=== PATIENT | male | born 1995 | race Caucasian/White ===

== ENCOUNTER 2020-06-02 14:31 | Emergency (ER) | payer MEDICAID, SELFPAY ==
--- NOTE | 2020-06-02 14:54 | HMH.EDUTC ---
[facility] [place] Clinical Impression: Sinusitis Qualifiers: Sinusitis location: unspecified location Chronicity: acute Recurrence: non-recurrent Qualified Code(s): J01.90 - Acute sinusitis, unspecified Disposition: Home, Self-Care Condition on Discharge: Good Instructions: Sinusitis, DI for Sinusitis Additional Instructions: Drink plenty of fluids. Take tylenol or ibuprofen for pain or fever. Take the medications as directed. Follow up with your regular doctor. GO TO THE ER FOR ANY WORSENING SYMPTOMS Prescriptions: Brompheniramine/Pseudoephed/Dm [Bromfed Dm Cough Syrup] 5 ml PO Q6HP PRN #240 syrup PRN Reason: Cough Transmission Status: Received by [facility] Azithromycin [Z-Rahul 250mg Tab*] 250 mg PO UD DOSE PK #6 tab Transmission Status: Received by [facility] Referrals: PCP,No [Primary Care Provider] - Forms: Work/School Release Time of Disposition: 15:20 Medical Decision Making - Medical Records Medical records reviewed: No: I reviewed the patient's medical records. - Johnnie Inquiry Pt receiving controlled substance: No Vital Signs: 06/02/20 14:56 06/02/20 15:26 Temperature 98.6 F 98.6 F Temperature Source Oral Pulse Rate 95 H Pulse Rate [Left Brachial] 95 H Respiratory Rate 20 20 Blood Pressure 141/77 H Blood Pressure [Right Arm] 141/77 H Blood Pressure Mean [Right Arm] 98 Blood Pressure Source [Right Arm] Automatic Cuff Blood Pressure Position [Right Arm] Sitting 02 Sat by Pulse Oximetry 98 Oxygen Delivery Method Room Air [facility] [place]PI - General Stated complaint: Possible sinus infection Time Seen by Provider: 06/02/20 14:54 - History of Present Illness Provider Complaint: He states that he has a sinus infection. He states that he gets one this time of year every year. He denies any exposure to covid. He refuses a covid test today. - Related Data Previous Rx's Medication Instructions Recorded Azithromycin [Z-Rahul 250mg Tab*] 250 mg PO UD DOSE PK #6 tab 06/02/20 Brompheniramine/Pseudoephed/Dm 5 ml PO Q6HP PRN #240 syrup 06/02/20 [Bromfed Dm Cough Syrup] Allergies Allergy/AdvReac Type Severity Reaction Status Date / Time No Known Allergies Allergy Verified 06/02/20 15:03 [facility] History - Hepatitis A Screen Attestation statement:: This patient has been screened for Hepatitis A risk factors. I have reviewed the patient's past medical history: Yes - Social History Alcohol Intake: never Occupational Status: employed Housing: house ROS Obtained: Yes All systems reviewed & no additional complaints - Constitutional Constitutional: Denies chills, Denies fever(s), Reports poor appetite, Reports malaise - Eyes Eyes: Denies eye discharge - ENT Ears, Nose, Mouth, and Throat: Reports as per HPI - Cardiovascular Cardiovascular: Denies chest pain - Respiratory Respiratory: No chest congestion, Yes cough, No dyspnea, No stridor, No wheezing Physical Exam - General General appearance: alert, in no apparent distress - Head Head exam: atraumatic, normocephalic, normal inspection - Eye Eye exam: Present: normal appearance, PERRL, EOMI - ENT ENT exam: Present: mucous membranes moist, normal external ear exam - Expanded ENT Exam TM/Canal exam: Bilateral TM: erythema, bulging Nose exam: Present: sinus tenderness Mouth exam: Present: normal external inspection Teeth exam: Present: normal inspection Throat exam: Present: tonsillar erythema. Absent: tonsillomegaly, tonsillar exudate, R peritonsillar mass, L peritonsillar mass - Neck Neck exam: Present: normal inspection, full ROM, trachea midline. Absent: meningismus, lymphadenopathy - Chest Chest inspection: Present: normal inspection, symmetric chest wall rise. Absent: tenderness - Respiratory Respiratory exam: Present: normal lung sounds bilaterally. Absent: respiratory distress - Cardiovascular Cardiovascular exam: Present: regular rate, normal rhythm
[2020-06-02 14:56] VITALS: BP 141/77; PULSE 95; RESP 20; TEMP 37; O2SAT 98; BMI 49.1
[2020-06-02 15:26] VITALS: BP 141/77; PULSE 95; RESP 20; TEMP 37; O2SAT 98
== END 2020-06-02 15:30 | disposition home or self-care (01) ==
LOC: UTC 14:34
PROVIDERS: Emergency Provider Nurse Practitioner Family
DX: J01.90 Acute sinusitis, unspecified (principal)
CPT/HCPCS: 99201

== ENCOUNTER 2021-01-19 01:37 | Emergency (ER) | payer OTHER, SELFPAY ==
[2021-01-19 02:02] VITALS: BMI 50.3
--- NOTE | 2021-01-19 02:04 | XR_ITS ---
PROCEDURE INFORMATION: Exam: XR Chest Exam date and time: 01/19/2021 2:04 AM Age: 25 years old Clinical indication: Patient HX: Fever dizzy TECHNIQUE: Imaging protocol: XR of the chest. Views: 2 views. Total images: 2 COMPARISON: No relevant prior studies available. FINDINGS: Lungs: Subtle bronchial inflammation is evident with mild hyperinflation. Pleural spaces: Unremarkable. No pleural effusion. No pneumothorax. Heart/Mediastinum: Unremarkable. No cardiomegaly. Bones/joints: Unremarkable. IMPRESSION: Hyperinflation and subtle bronchial wall thickening, bronchitis versus asthma. No consolidation.
[2021-01-19 02:14] VITALS: BP 142/94; PULSE 100; RESP 16; TEMP 38.1; O2SAT 97; BMI 50.3
[2021-01-19 02:17] LABS: Adenovirus,PCR Not Detected (NotDetected); Bordetella Pertussis Not Detected (NotDetected); Chlamydophila Pneumoniae, PCR Not Detected (NotDetected); Coronavirus 19, PCR Not Detected (NotDetected); Coronavirus 229E Not Detected (NotDetected); Coronavirus NL63 Not Detected (NotDetected); Coronavirus OC43 Not Detected (NotDetected); Coronovirus HKU1,PCR Not Detected (NotDetected); Human Metapneumovirus Not Detected (NotDetected); Influenza A, PCR Not Detected (NotDetected); Influenza AH1, 2009 Not Detected (NotDetected); Influenza AH1, PCR Not Detected (NotDetected); Influenza AH3,PCR Not Detected (NotDetected); Influenza B, PCR Not Detected (NotDetected); Mycoplasma Pneumoniae, PCR Not Detected (NotDetected); Parainfluenza 1, PCR Not Detected (NotDetected); Parainfluenza 2, PCR Not Detected (NotDetected); Parainfluenza 3, PCR Not Detected (NotDetected); Parainfluenza 4, PCR Not Detected (NotDetected); Respiratory Syncytial Virus Not Detected (NotDetected); Rhinovirus/Enterovirus Not Detected (NotDetected)
[2021-01-19 02:22] LABS: Basophils % 0.4 % (0.1-2.0); Eosinophils # 0.1 K/mm3 (0.0-0.4); Eosinophils % 1.3 % (0.1-12.0); Hematocrit 43.8 % (42.0-52.0); Hemoglobin 14.9 g/dL (14.1-18.0); Lymphocytes # 0.7 K/mm3 (0.7-4.5); Lymphocytes % 15.6 % (10-50); Mean Corpuscular HGB Conc 33.9 g/dL (31.8-35.4); Mean Corpuscular Hemoglobin 28.2 pg (27.0-31.2); Mean Corpuscular Volume 83.3 fl (80-94); Mean Platelet Volume 9.9 fl (7.4-10.4); Monocytes # 0.2 K/mm3 (0.1-1.0); Monocytes % 4.7 % (1.7-9.3); Neutrophils # 3.6 K/mm3 (1.8-7.8); Platelet Count 175 K/mm3 (142-424); Red Blood Count 5.26 M/mm3 (4.60-6.20); Red Cell Distribution Width 13.6 % (11.5-17.5); White Blood Count 4.6 K/mm3 (4.8-10.8)
[2021-01-19 02:30] LABS: Chloride 105 mmol/L (98-107); Potassium 3.9 mmoL/L (3.5-5.1); Sodium 140 mmol/L (136-145)
[2021-01-19 02:32] LABS: Blood Urea Nitrogen 13 mg/dl (9-20); Creatinine Clearance Estimated 138 mL/min (50-200); Estimated Glomerular Filt Rate 103 ml/min (>60); GFR (African American) 124 ML/MIN (>60)
[2021-01-19 02:33] LABS: Alanine Aminotransferase 72 U/L (12-78); Albumin Level 4.8 g/dl (3.5-5.0); Albumin/Globulin Ratio 2.3 (1.1-1.8); Alkaline Phosphatase 57 U/L (38-126); Anion Gap 13.9 mEq/L (5-15); Aspartate Amino Transferase 41 U/L (17-59); Bilirubin,Total 1.9 mg/dl (0.2-1.3); Calcium 9.2 mg/dl (8.4-10.2); Carbon Dioxide 25 mmol/L (22.0-30.0); Globulin 2.1 g/dL (1.3-3.2); Glucose 106 mg/dl (74-100); Total Protein,Serum 6.9 g/dl (6.3-8.2)
[2021-01-19 02:55] LABS: Monoscreen (Rapid) Negative (Negative)
[2021-01-19 03:00] LABS: Erythrocyte Sedimentation Rate 19 mm/hr (0-15)
[2021-01-19 03:20] VITALS: BP 120/72; PULSE 95; O2SAT 97
[2021-01-19 03:30] VITALS: BP 135/73; PULSE 95; O2SAT 97
--- NOTE | 2021-01-19 03:39 | HMH.EDFEV ---
ED Disposition Clinical Impression: Bronchitis Disposition: Home, Self-Care Condition on Discharge: Good Instructions: DI for Fever (Symptom) -- Adult Additional Instructions: use meds and fluids and see pcp for follow up Prescriptions: levoFLOXacin [Levaquin 500mg tab] 500 mg PO DAILY #7 tab Transmission Status: Pending to [facility] predniSONE [Prednisone 20mg Tab] 20 mg PO BID #10 tab Transmission Status: Pending to [facility] Referrals: Provider,Referral, [Primary Care Provider] - - Critical Care Critical Care Time: No Attestation: On 01/19/21, the high probability of a clinically significant, sudden or life threatening deterioration of the following system(s) required my full and direct attention, intervention and personal management. The time I documented below is in addition to time spent performing reported procedures but includes the following listed in this critical care notation. Medical Decision Making - Medical Records Medical records reviewed: Yes: I reviewed the patient's medical records. - Johnnie Inquiry Pt receiving controlled substance: No Vital Signs: 01/19/21 02:14 01/19/21 03:20 01/19/21 03:30 Temperature 100.6 F H Temperature Source Oral Pulse Rate 95 H 95 H Pulse Rate [Right] 100 H Respiratory Rate 16 Blood Pressure 120/72 135/73 Blood Pressure [Right Arm] 142/94 H Blood Pressure Mean 94 Blood Pressure Mean [Right Arm] 110 Blood Pressure Source [Right Arm] Automatic Cuff Blood Pressure Position [Right Arm] Supine 02 Sat by Pulse Oximetry 97 97 97 Oxygen Delivery Method Room Air - Lab Data Lab results reviewed: Yes: I reviewed the patient's lab results. Lab Results 01/19/21 02:08: Chlamy pneumoniae PCR Not detected, Adenovirus (PCR) Not detected, B. pertussis DNA (PCR) Not detected, Coronavirus OC43 (PCR) Not detected, Coronavirus HKU1 (PCR) Not detected, Coronavirus 229E (PCR) Not detected, SARS-CoV-2 (PCR) Not detected, Coronavirus NL63 (PCR) Not detected, Human Metapneumovir PCR Not detected, Influenza A (H1) PCR Not detected, Influ A (H1N1/09) PCR Not detected, Influenza A (H3) PCR Not detected, Influenza Type A (PCR) Not detected, Influenza Type B (PCR) Not detected, M. pneumoniae (PCR) Not detected, Parainfluenza 1 (PCR) Not detected, Parainfluenza 2 (PCR) Not detected, Parainfluenza 3 (PCR) Not detected, Parainfluenza 4 (PCR) Not detected, RSV (PCR) Not detected, Entero/Rhino (PCR) Not detected 01/19/21 02:08: WBC 4.6 L, RBC 5.26, Hgb 14.9, Hct 43.8, MCV 83.3, MCH 28.2, MCHC 33.9, RDW 13.6, Plt Count 175, MPV 9.9, Neut % (Auto) 78.0, Lymph % (Auto) 15.6, Will % (Auto) 4.7, Eos % (Auto) 1.3, Baso % (Auto) 0.4, Neut # (Auto) 3.6, Lymph # (Auto) 0.7, Will # (Auto) 0.2, Eos # (Auto) 0.1, Baso # (Auto) 0.0, ESR 19 H 01/19/21 02:08: Sodium 140, Potassium 3.9, Chloride 105, Carbon Dioxide 25, Anion Gap 13.9, BUN 13, Creatinine 0.90, Estimated Creat Clear 138, Estimated GFR 103, Est GFR ( Amer) 124, Glucose 106 H, Calcium 9.2, Total Bilirubin 1.9 H, AST 41, ALT 72, Alkaline Phosphatase 57, C-Reactive Protein 17.0 H, Total Protein 6.9, Albumin 4.8, Globulin 2.1, Albumin/Globulin Ratio 2.3 H, Procalcitonin 0.303 01/19/21 02:08: Monoscreen Negative 01/19/21 03:49: Urine Color Yellow, Urine Appearance Clear, Urine pH 7.5, Ur Specific Emery 1.010, Urine Protein Negative, Urine Glucose (UA) Negative, Urine Ketones Negative, Urine Blood Trace-i, Urine Nitrate Negative, Urine Bilirubin Negative, Urine Urobilinogen 1.0, Ur Leukocyte Esterase Negative Result diagrams: 01/19/21 02:08 01/19/21 02:08 Orders (Tests/Meds): ED MEDICATIONS Generic Name Dose Route Start Last Admin Trade Name Freq PRN Reason Stop Dose Admin Sodium Chloride 1,000 mls @ 999 mls/hr 01/19/21 02:15 01/19/21 02:28 Sod Chlor 0.9% 1000ml Bag IV 01/19/21 03:15 999 mls/hr .Q1H1M FELY Administration Ceftriaxone Sodium 1 gm/ 50 mls @ 100 mls/hr 0
[2021-01-19 04:17] LABS: Procalcitonin 0.303 ng/mL (0.0-2.0)
[2021-01-19 04:20] LABS: Microscopic, Urine URINE MICROSCOPIC (MICROSCOPIC)
[2021-01-19 04:28] LABS: Appearance,Urine CLEAR (Clear); Bilirubin,Urine Negative (Negative); Blood, Urine TRACE-I (Negative); Color,Urine YELLOW (Yellow); Glucose,Urine (UA) Negative (Negative); Ketones,Urine Negative (Negative); Leukocyte Esterase,Urine Negative (Negative); Nitrate,Urine Negative (Negative); PH,Urine 7.5 (5.0-8.5); Protein,Urine Negative (Negative)
[2021-01-19 04:51] VITALS: BP 135/73; PULSE 92; RESP 18; TEMP 37.4; O2SAT 97
[2021-01-19 05:12] LABS: RBC,Urine Occasional #/hpf (0-3); Squamous Epithelial Cell,Urine Occasional #/hpf (0-5)
== END 2021-01-19 05:02 | disposition home or self-care (01) ==
PROVIDERS: Emergency Provider Emergency Medicine
DX: J20.9 Acute bronchitis, unspecified (principal)
CPT/HCPCS: 71046; 80053; 81001; 84145; 85025; 85651; 86140; 86318; 87581; 87633; 87798; 96365; 96366; 96375; 99283; J2405

== ENCOUNTER 2021-12-01 13:39 | Emergency (ER) | payer OTHER, SELFPAY ==
[2021-12-01 13:50] VITALS: BP 134/99; PULSE 89; RESP 21; TEMP 36.8; O2SAT 95; BMI 49.8
--- NOTE | 2021-12-01 14:01 | HMH.EDUTC ---
[facility] [place] Disposition Clinical Impression: Kidney stone on right side, Renal colic on right side Disposition: Still a Patient Condition on Discharge: Fair Referrals: Provider,Referral, [Primary Care Provider] - Time of Disposition: 14:35 Medical Decision Making - Medical Records Medical records reviewed: No: I reviewed the patient's medical records. - Johnnie Inquiry Pt receiving controlled substance: No Vital Signs: 12/01/21 13:50 Temperature 98.2 F Temperature Source Oral Pulse Rate [Left Brachial] 89 Respiratory Rate 21 Blood Pressure [Left Arm] 134/99 H Blood Pressure Mean [Left Arm] 110 Blood Pressure Source [Left Arm] Automatic Cuff Blood Pressure Position [Left Arm] Sitting 02 Sat by Pulse Oximetry 95 Oxygen Delivery Method Room Air - Lab Data Lab results reviewed: Yes: I reviewed the patient's lab results. Medical Decision Narrative: He was transferred to the ER due the severity of his discomfort. [facility] [place] HPI - General Stated complaint: urinary pain, lower abd pain Time Seen by Provider: 12/01/21 14:01 - History of Present Illness Provider Complaint: He states that he began having back pain on the right side 4 days ago. The pain was severe so he went to [facility] and had a ct scan. He was diagnosed with a kidney stone in his right ureter (2 mm). He was given toradol which helped his symptoms at first. He was pain free until yesterday. His pain returned worse than before yesterday evening. He has continued to take oral toradol with no relief since then. He is having difficulty voiding and he states there is obvious blood in his urine. He denies any fever or chills. - Related Data Allergies Allergy/AdvReac Type Severity Reaction Status Date / Time No Known Allergies Allergy Verified 06/02/20 15:03 [facility] History - Hepatitis A Screen Attestation statement:: This patient has been screened for Hepatitis A risk factors. I have reviewed the patient's past medical history: Yes 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: Denies:: Diabetes Mellitus Type 1, Diabetes Mellitus Type 2 Laterality Cases: Bilateral: Tonsillectomy - Social History Alcohol Intake: never Occupational Status: employed Housing: house ROS Obtained: Yes All systems reviewed & no additional complaints - Constitutional Constitutional: Denies chills, Denies fever(s), Reports poor appetite, Reports malaise - Eyes Eyes: Denies eye discharge - ENT Ears, Nose, Mouth, and Throat: Denies dizziness, Denies otalgia, Denies sore throat, Denies vertigo/dizziness - Cardiovascular Cardiovascular: Denies chest pain - Respiratory Respiratory: Denies chest congestion, Denies cough, Denies dyspnea, Denies stridor, Denies wheezing - Gastrointestinal Gastrointestingal: Reports: nausea. Denies: abdominal pain, cramping, diarrhea, vomiting - Genitourinary Male Genitourinary: Reports as per HPI, Reports difficulty urinating, Reports hematuria, Reports urinary hesitancy - Musculoskeletal Musculoskeletal: Reports back pain - Integumentary/Breasts Skin/Breast: Denies rash Physical Exam - General General appearance: alert, in no apparent distress - Head Head exam: atraumatic, normocephalic, normal inspection - Eye Eye exam: Present: normal appearance, PERRL, EOMI - ENT ENT exam: Present: normal exam, normal oropharynx, mucous membranes moist, TM's normal bilaterally, normal external ear exam - Neck Neck exam: Present: normal inspection, full ROM, trachea midline. Absent: meningismus, lymphadenopathy - Chest Chest inspection: Present: normal inspection, symmetric chest wall rise. Absent: tenderness - Respiratory Respiratory exam: Present: normal lung sounds bilaterally. Absent: respiratory distress - Cardiovascular Cardiovascular exam: Present: regular rate, normal rhythm. Absent: JVD - Abdominal Exam Abdominal exam: Present: soft, normal bowel sounds. Absent: distention, tenderness, guarding - Extremities Exam
[2021-12-01 14:29] LABS: Apearance,Urine Clear (Clear); Color,Urine Yellow (Yellow)
[2021-12-01 14:30] LABS: PH,Urine 5.5 (5.0-8.5)
[2021-12-01 14:31] LABS: Bilirubin,Urine Negative (Negative); Blood, Urine 3+ (Negative); Glucose,Urine (UA) Negative (Negative); Ketones,Urine Negative (Negative); Protein,Urine 1+ (Negative); UTC Leukocyte Esterase,Urine Negative (Negative); UTC Nitrate,Urine Negative (Negative); Urobilinogen,Urine 0.2 EU/dl (0.2)
--- NOTE | 2021-12-01 14:36 | PC.NURSE ---
PATIENT SENT TO ER PER Hailey BERMUDEZ APRN FOR FURTHER EVALUATION. REPORT GIVEN TO Edin SALGADO RN
--- NOTE | 2021-12-01 14:44 | PC.NURSE ---
ED MD at
--- NOTE | 2021-12-01 14:45 | PC.NURSE ---
Called [facility] medical records to have ED records faxed to us
--- NOTE | 2021-12-01 15:01 | HMH.EDGENADL ---
ED Disposition Clinical Impression: Ureteral calculus Disposition: Home, Self-Care Condition on Discharge: Good Instructions: DI for Kidney Stones Additional Instructions: Flomax as prescribed. Percocet as needed for pain. Zofran as needed for nausea. Additional instructions for KIDNEY STONE (URETERAL CALCULUS): See Dr. Sherwood as soon as possible for further evaluation. Drink plenty of fluids. Strain your urine and save any stones you catch. Return immediately if you develop a fever or have uncontrollable vomiting or uncontrollable pain. Additional instructions for CONTROLLED SUBSTANCES: You have been prescribed a medication that is a controlled substance. Controlled substances include pain medications known as opiates and sedative nerve medications known as benzodiazepines. Tramadol, fioricet, and gabapentin are also controlled substances. Some common opiates include: Codeine (such as Tylenol #3) Hydrocodone (Vicodin, Lortab, Lorcet, [place]) Oxycodone (Percocet, Percodan, Oxycodone, Oxy IR) Some common benzodiazepines include: Diazepam (Valium) Lorazepam (Ativan) Alprazolam (Xanax) Clonazepam (Klonopin) Oxazepam (Serax) All of these controlled substances are highly addictive and frequently abused. Misuse can and frequently does lead to addiction as well as overdose and . Medication should be stored in a locked cabinet or other secure storage unit. Do not store the medication in a motor vehicle. Short term supplies, 3 days or less, are prescribed because of the highly addictive nature of the medication. Any of the controlled substance medication NOT taken should be disposed of properly and NOT SAVED. The recommended method of disposing of unused medications is: Place the medicines in a sealable plastic bag. If the medicine is a solid, crush it or add water to dissolve it. Add something undesirable (cat litter, coffee grounds, etc.) Dispose of sealed bag in household trash Do not flush or pour unused medicines down a sink or drain. Controlled substances should not be shared, given away or sold. Because of the addictive nature and frequent abuse, these medications are sometimes stolen. These medications should be kept in a safe place where they cannot be stolen. Do not keep them in your car or purse. Lost or stolen prescriptions for controlled substances WILL NOT BE REFILLED in this emergency department, regardless of whether a police report was filed. Prescriptions: Oxycodone HCl/Acetaminophen [Percocet 5/325mg tablet] 1 tab PO Q6HP PRN #12 tablet PRN Reason: Moderate To Severe Pain Transmission Status: Sent to [facility] Ondansetron [Zofran 4mg ODT] 4 mg PO TIDP PRN #10 tab PRN Reason: Nausea And Vomiting Transmission Status: Pending to [facility] Referrals: Provider,MD Piper [Primary Care Provider] - Edenilson Sherwood MD [Staff Physician] - - Critical Care Critical Care Time: No Attestation: On 12/01/21, the high probability of a clinically significant, sudden or life threatening deterioration of the following system(s) required my full and direct attention, intervention and personal management. The time I documented below is in addition to time spent performing reported procedures but includes the following listed in this critical care notation. Medical Decision Making - Medical Records Medical records reviewed: Yes: I reviewed the patient's medical records. MR Comment: Emergency department record from [facility] visit 11/27/2021 received via fax and reviewed. CT scan showed 2 mm stone right proximal ureter without significant hydronephrosis. - Johnnie Inquiry Pt receiving controlled substance: Yes Johnnie was queried for this patient: Yes Risks and benefits of using a controlled substance: were discussed with pt by me Vital Signs: 12/01/21 13:50 12/01/21 15:02 12/01/21 15:32 Temperature 98.2 F 98.8 F Temperature Source Oral
[2021-12-01 15:02] VITALS: BP 158/100; PULSE 87; RESP 16; TEMP 37.1; O2SAT 99; BMI 49.8
[2021-12-01 15:09] LABS: Chloride 106 mmol/L (98-107); Sodium 140 mmol/L (136-145)
[2021-12-01 15:10] LABS: Basophils # 0.1 K/mm3 (0-0.2); Basophils % 1.6 % (0.1-2.0); Eosinophils # 0.3 K/mm3 (0.0-0.4); Eosinophils % 4.4 % (0.1-12.0); Hematocrit 44.2 % (42.0-52.0); Hemoglobin 15.4 g/dL (14.1-18.0); Lymphocytes # 1.2 K/mm3 (0.7-4.5); Lymphocytes % 19.7 % (10-50); Mean Corpuscular HGB Conc 34.7 g/dL (31.8-35.4); Mean Corpuscular Hemoglobin 28.6 pg (27.0-31.2); Mean Corpuscular Volume 82.5 fl (80-94); Mean Platelet Volume 9.9 fl (7.4-10.4); Monocytes # 0.4 K/mm3 (0.1-1.0); Monocytes % 6.5 % (1.7-9.3); Neutrophils % 67.8 % (37.0-80.0); Platelet Count 241 K/mm3 (142-424); Potassium 3.6 mmoL/L (3.5-5.1); Red Blood Count 5.36 M/mm3 (4.60-6.20); Red Cell Distribution Width 13.4 % (11.5-17.5)
[2021-12-01 15:13] LABS: Anion Gap 13.6 mEq/L (5-15); Blood Urea Nitrogen 17 mg/dl (9-20); Calcium 9.1 mg/dl (8.4-10.2); Carbon Dioxide 24 mmol/L (22.0-30.0); Creatinine Clearance Estimated 137 mL/min (50-200); Estimated Glomerular Filt Rate 102 ml/min (>60); GFR (African American) 123 ML/MIN (>60); Glucose 121 mg/dl (74-100)
[2021-12-01 15:32] VITALS: BP 127/80; PULSE 64; O2SAT 96
--- NOTE | 2021-12-01 15:44 | PC.NURSE ---
patient given some ice water that was okay's by Dr. Holden
--- NOTE | 2021-12-01 15:49 | PC.NURSE ---
ED MD at speaking with patient
[2021-12-01 16:15] VITALS: BP 129/86; PULSE 65; RESP 16; TEMP 37.1; O2SAT 98
== END 2021-12-01 16:17 | disposition home or self-care (01) ==
LOC: UTC 13:41 → ER 14:35
PROVIDERS: Nurse Practitioner Family; Emergency Provider Emergency Medicine
DX: N20.1 Calculus of ureter (principal)
CPT/HCPCS: 80048; 81003; 85025; 87086; 96360; 96365; 96375; 99284; J2405

== ENCOUNTER → 2021-12-05 15:53 | Outpatient (CLI) | payer OTHER, SELFPAY ==
--- NOTE | 2021-12-05 15:59 | XR_ITS ---
FINAL REPORT CLINICAL HISTORY: KIDNEY STONE; right lower quad pain; obesity FINDINGS: SINGLE VIEW ABDOMEN A single view of the abdomen was obtained. There is a nonobstructive bowel gas pattern. There is a moderate amount of retained stool in the colon. There are no abnormally dilated loops of small bowel. There is no renal stone identified. There are several calcifications in the right pelvis, most of these likely represent phleboliths but a ureteral stone is not excluded. IMPRESSION: Several calcifications in the right pelvis as above, may represent phleboliths but ureteral stone is not excluded. If indicated, stone protocol CT may be helpful. Reviewed, Interpreted and Dictated by Sammy Bal III, MD Transcribed by Mira Galan Authenticated by Sammy Bal III, MD on 12/05/2021 04:30:24 PM [facility]
== END ==
PROVIDERS: Visit Provider Pathology Anatomic Pathology & Clinical Pathology
DX: N20.0 Calculus of kidney (principal)
CPT/HCPCS: 74018

== ENCOUNTER → 2021-12-12 14:50 | Outpatient (CLI) | payer OTHER, SELFPAY ==
--- NOTE | 2021-12-12 14:57 | XR_ITS ---
FINAL REPORT CLINICAL HISTORY: KIDNEY STONE COMPARISON: December 05, 2021 FINDINGS: A single supine view of the abdomen was obtained. The bowel gas pattern is unremarkable. There are no convincing renal stones. There are stable right pelvic calcifications. Osseous structures are within normal limits. IMPRESSION: 1. No convincing renal stones. 2. Stable right pelvic calcifications. Reviewed, Interpreted and Dictated by Marya Hopper MD Transcribed by Shavon Mason Authenticated by Marya Hopper MD on 12/12/2021 04:37:04 PM [facility]
== END ==
PROVIDERS: PCP Urology; Visit Provider Urology
DX: N20.0 Calculus of kidney (principal)
CPT/HCPCS: 74018

== ENCOUNTER → 2021-12-26 09:47 | Outpatient (CLI) | payer OTHER, SELFPAY ==
[2021-12-26 12:07] LABS: PH,Semen 8.5 (7.3-8.3); Semen Viscosity Normal (Normal); Sperm Morphology Normal (Normal); WBCs,Semen Negative
[2021-12-26 12:08] LABS: Motility Quality Rapid Progression (Mod-Rapid); Sperm Count 59 mil/mm3 (20-160); Sperm Motility 95 % (50-90)
[2021-12-26 12:53] LABS: 3Hr Motility Quality Good Progression (Mod-Rapid); 3Hr Sperm Motility 90 % (50-60)
== END ==
PROVIDERS: Visit Provider Urology
DX: N46.9 Male infertility, unspecified (principal)
CPT/HCPCS: 89320

== ENCOUNTER 2023-02-03 15:37 | Emergency (ER) | payer OTHER, SELFPAY ==
[2023-02-03 15:38] VITALS: BP 136/68; PULSE 97; RESP 16; TEMP 36.8; O2SAT 98; BMI 52.6
--- NOTE | 2023-02-03 16:00 | EXP.UTC ---
Discharge Plan Disposition Patient Disposition: Home, Self-Care Condition: Good Prescriptions Prescriptions: New benzonatate [benzonatate] 100 mg capsule 100 mg PO TIDP PRN (Reason: Cough) Qty: 30 0RF amoxicillin-pot clavulanate 875-125 mg Tablet 1 tab PO Q12H Qty: 20 0RF promethazine-DM 6.25-15 mg/5 mL Syrup 5 ml PO Q6H PRN (Reason: Cough) Qty: 240 0RF methylprednisolone 4 mg Tablets,Dose Pack 4 mg PO DIRECTED Qty: 21 0RF No Action oxycodone-acetaminophen 1 EACH tablet 1 tab PO Q6HP PRN (Reason: Moderate To Severe Pain) Qty: 12 0RF ondansetron 4 MG tablet,disintegrating 4 mg PO TIDP PRN (Reason: Nausea And Vomiting) Qty: 10 0RF Referrals Follow up/Referrals: Dillon Courtney [Primary Care Provider] - See instructions Activity Restrictions/Add. Instructions Additional Instructions/Restrictions: Drink plenty of fluids. Take tylenol or ibuprofen for pain or fever. Take the medications as directed. Follow up with your regular doctor. GO TO THE ER FOR ANY WORSENING SYMPTOMS The cough medication (promethazine dm) will make you drowsy, so don't drive or operate heavy machinery after taking it. Clinical Impressions Clinical Impression: Bronchitis, Sinusitis Instructions Patient Instructions: Sinusitis, DI for Sinusitis Discharge ED Provider: Ben Carranza [facility] General Stated complaint: congestion Mode of Arrival: Ambulatory Source of Information: Patient Limitations: No Limitations Time Seen by Provider: 02/03/23 16:00 Description of Symptoms (Recalled from Triage Doc. by RN): Patient reports sore throat, stuffy nose, nausea, slight fever for a couple of days. HEENT Symptoms (Recalled from RN notes): Yes Resp Symptoms (Recalled from RN notes): No Skin Symptoms (Recalled from RN notes): No MS Symptoms (Recalled from RN notes): No Functional Status (Recalled from RN notes): wnl History of Present Illness Provider Complaint: He states that for the past 2 days he has had sore throat, chills, ear pain, and productive cough. Related Data Previous Rx's Medication Instructions Recorded ondansetron 4 mg disintegrating 4 mg PO TIDP PRN Nausea And 12/01/21 tablet Vomiting #10 tabs oxycodone-acetaminophen 5 mg-325 1 tab PO Q6HP PRN Moderate To 12/01/21 mg tablet Severe Pain #12 tabs amoxicillin 875 mg-potassium 1 tab PO Q12H #20 tabs 02/03/23 clavulanate 125 mg tablet benzonatate 100 mg capsule 100 mg PO TIDP PRN Cough #30 caps 02/03/23 methylprednisolone 4 mg tablets in 4 mg PO DIRECTED #21 tabs 02/03/23 a dose pack promethazine-DM 6.25 mg-15 mg/5 mL 5 ml PO Q6H PRN Cough #240 mL 02/03/23 oral syrup Allergies Allergy/AdvReac Type Severity Reaction Status Date / Time No Known Allergies Allergy Verified 12/26/21 08:57 Worker's Comp Is this a Worker's Comp case?: No [facility] Disclaimer: The information contained in this section may have been updated after the patient was seen, as this information can be updated by other users. Social History Smoking Status: Never smoker alcohol intake: never substance use type: denies use current occupational status: employed Travel in the last 8 weeks: None household members: spouse and family housing: house ROS Obtained: Yes All systems reviewed & no additional complaints except as documented Constitutional Constitutional: Reports poor appetite Eyes Eyes: Reports system reviewed and no additional complaints, except as documented ENT Ears, Nose, Mouth, and Throat: Reports as per HPI Cardiovascular Cardiovascular: Reports system reviewed and no additional complaints, except as documented and Denies chest pain Respiratory Respiratory: Denies shortness of breath, Reports chest congestion, Reports cough, Denies stridor and Denies wheezing Gastrointestinal Gastr
[2023-02-03 16:06] LABS: UTC Strep Screen (Rapid) Negative (Negative)
[2023-02-03 16:35] VITALS: BP 136/68; PULSE 97; RESP 16; TEMP 36.8; O2SAT 98
== END 2023-02-03 16:37 | disposition home or self-care (01) ==
PROVIDERS: Emergency Provider Nurse Practitioner Family; PCP Pediatrics
DX: J20.9 Acute bronchitis, unspecified (principal); J01.90 Acute sinusitis, unspecified
CPT/HCPCS: 87880; 99212; 99214; G0463

== ENCOUNTER 2023-02-05 15:03 | Emergency (ER) | payer OTHER, SELFPAY ==
[2023-02-05 15:20] VITALS: BP 130/76; PULSE 74; RESP 20; TEMP 37.1; O2SAT 99; BMI 52.6
--- NOTE | 2023-02-05 15:45 | EXP.UTC ---
Discharge Plan Disposition Patient Disposition: Home, Self-Care Condition: Good Prescriptions Prescriptions: New albuterol sulfate [Proventil HFA] 90 mcg/actuation HFA aerosol inhaler 1 - 2 inh inhalation Q4-6H PRN (Reason: shortness of breath or wheezing) Qty: 8.5 0RF guaifenesin [Mucinex] 600 mg tablet extended release 12hr 1,200 mg PO BID PRN (Reason: congestion) Qty: 20 0RF azithromycin [Zithromax Z-Rahul] 250 mg tablet See Rx Instructions .ROUTE .COMPLEX 5 Days Qty: 6 0RF Rx Instructions: For 250 mg dose pack: take 500 mg today (day 1), then 250 mg for 4 days (days 2-5) No Action oxycodone-acetaminophen 1 EACH tablet 1 tab PO Q6HP PRN (Reason: Moderate To Severe Pain) Qty: 12 0RF ondansetron 4 MG tablet,disintegrating 4 mg PO TIDP PRN (Reason: Nausea And Vomiting) Qty: 10 0RF benzonatate [benzonatate] 100 mg capsule 100 mg PO TIDP PRN (Reason: Cough) Qty: 30 0RF amoxicillin-pot clavulanate 875-125 mg Tablet 1 tab PO Q12H Qty: 20 0RF promethazine-DM 6.25-15 mg/5 mL Syrup 5 ml PO Q6H PRN (Reason: Cough) Qty: 240 0RF methylprednisolone 4 mg Tablets,Dose Pack 4 mg PO DIRECTED Qty: 21 0RF Referrals Follow up/Referrals: Dillon Courtney [Primary Care Provider] - See instructions Activity Restrictions/Add. Instructions Additional Instructions/Restrictions: Continue Augmentin and Start azithromycin today. Be sure to complete entire prescription even if feeling better Monitor temp. Tylenol every 4 hours as needed and / or ibuprofen every 6 hours as needed ( As long as your primary care physician has told you that it ok to take both. For fever/aches/pains ER if no less than 101 despite Tylenol or Motrin Humidifier/vaporizer or hot steamy shower Inhaler every 4-6 hours as needed like we discussed. If unsure how to use it, ask pharmacist to demonstrate how. Should help open airways and improve cough, wheezing, and shortness of breath Mucinex during the day for your cough and cough suppressant only at night you can choose which one that you use but do not use both the Promethazine DM or Tessalon Perrles at bedtime and Mucinex during the day Be sure to drink lots of water with mucinex. *continue steroid . Helps with inflammation therefore, cough and wheezing. Follow directions on the package. Reviewed side effects. Patient reports taking them before. Follow up IMMEDIATELY for new or worsening of symptoms OR no noticeable improvement over the next 48-72 hours. 911 immediately for any life threatening symptoms such as chest pain or difficulty breathing Clinical Impressions Clinical Impression: Bronchitis, Sinusitis Instructions Patient Instructions: DI for Sinusitis, Albuterol, Guaifenesin Discharge ED Provider: Julia Reyes [facility] [place] HPI General Stated complaint: andres, bronchitis positive 02/03 Mode of Arrival: Ambulatory Source of Information: Patient Limitations: No Limitations Time Seen by Provider: 02/05/23 15:40 Description of Symptoms (Recalled from Triage Doc. by RN): PATIENT C/O CHEST CONGESTION; HE STATES HE WAS TREATED FOR BRONCHITIS AND SINUSITIS ON SATURDAY AND IS NOT FEELING BETTER HEENT Symptoms (Recalled from RN notes): No Resp Symptoms (Recalled from RN notes): Yes Skin Symptoms (Recalled from RN notes): No MS Symptoms (Recalled from RN notes): No Functional Status (Recalled from RN notes): WNL History of Present Illness Provider Complaint: Patient states that he has having cough, sinus congestion, Chest congestion and drainage states that he was started on Augmentin Medrol pack and has been taking Prometh DM but not getting any better States that he is worried he may be trying to set up pneumonia so he came back in to see if may need something else to help him get through it Related Data Previous Rx's Medication Instructions Recorded ondansetron 4 mg disintegrating 4 mg PO TIDP PRN Nausea And 12/01/21 tablet V
[2023-02-05 15:51] VITALS: BP 130/76; PULSE 74; RESP 20; TEMP 37.1; O2SAT 99
== END 2023-02-05 16:01 | disposition home or self-care (01) ==
PROVIDERS: Emergency Provider Nurse Practitioner; PCP Pediatrics
DX: J20.9 Acute bronchitis, unspecified (principal); J01.90 Acute sinusitis, unspecified; J45.909 Unspecified asthma, uncomplicated; I10 Essential (primary) hypertension
CPT/HCPCS: 99212; 99214; G0463

== ENCOUNTER 2023-02-11 12:15 | Emergency (ER) | payer OTHER, SELFPAY ==
[2023-02-11 12:15] VITALS: BP 142/70; PULSE 92; RESP 20; TEMP 36.6; O2SAT 97; BMI 51.7
--- NOTE | 2023-02-11 12:23 | EXP.UTC ---
Discharge Plan Disposition Patient Disposition: Home, Self-Care Condition: Good Prescriptions Prescriptions: New methylprednisolone 4 mg Tablets,Dose Pack 4 mg PO DIRECTED Qty: 21 0RF albuterol sulfate [Ventolin HFA] 90 mcg/actuation HFA aerosol inhaler 2 puff inhalation Q6H PRN (Reason: shortness of breath or wheezing) Qty: 6.7 0RF No Action oxycodone-acetaminophen 1 EACH tablet 1 tab PO Q6HP PRN (Reason: Moderate To Severe Pain) Qty: 12 0RF ondansetron 4 MG tablet,disintegrating 4 mg PO TIDP PRN (Reason: Nausea And Vomiting) Qty: 10 0RF benzonatate [benzonatate] 100 mg capsule 100 mg PO TIDP PRN (Reason: Cough) Qty: 30 0RF amoxicillin-pot clavulanate 875-125 mg Tablet 1 tab PO Q12H Qty: 20 0RF promethazine-DM 6.25-15 mg/5 mL Syrup 5 ml PO Q6H PRN (Reason: Cough) Qty: 240 0RF methylprednisolone 4 mg Tablets,Dose Pack 4 mg PO DIRECTED Qty: 21 0RF albuterol sulfate [Proventil HFA] 90 mcg/actuation HFA aerosol inhaler 1 - 2 inh inhalation Q4-6H PRN (Reason: shortness of breath or wheezing) Qty: 8.5 0RF guaifenesin [Mucinex] 600 mg tablet extended release 12hr 1,200 mg PO BID PRN (Reason: congestion) Qty: 20 0RF azithromycin [Zithromax Z-Rahul] 250 mg tablet See Rx Instructions .ROUTE .COMPLEX 5 Days Qty: 6 0RF Rx Instructions: For 250 mg dose pack: take 500 mg today (day 1), then 250 mg for 4 days (days 2-5) Referrals Follow up/Referrals: Dillon Courtney [Primary Care Provider] - See instructions Activity Restrictions/Add. Instructions Additional Instructions/Restrictions: Drink plenty of fluids. Take the medications as directed. Use the ventolin inhaler if you have wheezing or shortness of breath. Follow up with your regular doctor. GO TO THE ER FOR ANY WORSENING SYMPTOMS Clinical Impressions Clinical Impression: Bronchitis Instructions Patient Instructions: How to Use a Metered-Dose Inhaler, Acute Bronchitis, DI for Acute Bronchitis Discharge ED Provider: Ben CarranzaH [facility] HPI General Stated complaint: cough, sore throat Time Seen by Provider: 02/11/23 12:23 History of Present Illness Provider Complaint: He states that for the past 3 days he has had sore throat, chest congestion and a cough. Related Data Previous Rx's Medication Instructions Recorded ondansetron 4 mg disintegrating 4 mg PO TIDP PRN Nausea And 12/01/21 tablet Vomiting #10 tabs oxycodone-acetaminophen 5 mg-325 1 tab PO Q6HP PRN Moderate To 12/01/21 mg tablet Severe Pain #12 tabs amoxicillin 875 mg-potassium 1 tab PO Q12H #20 tabs 02/03/23 clavulanate 125 mg tablet benzonatate 100 mg capsule 100 mg PO TIDP PRN Cough #30 caps 02/03/23 methylprednisolone 4 mg tablets in 4 mg PO DIRECTED #21 tabs 02/03/23 a dose pack promethazine-DM 6.25 mg-15 mg/5 mL 5 ml PO Q6H PRN Cough #240 mL 02/03/23 oral syrup albuterol sulfate 90 mcg/actuation 1 - 2 inh inhalation Q4-6H PRN 02/05/23 aerosol inhaler (Proventil HFA) shortness of breath or wheezing #8.5 grams azithromycin 250 mg tablet See Rx Instructions PO .COMPLEX 5 02/05/23 (Zithromax Z-Rahul) days #6 tabs guaifenesin 600 mg tablet, 1,200 mg PO BID PRN congestion #20 02/05/23 extended release 12 hr (Mucinex) tabs albuterol sulfate 90 mcg/actuation 2 puff inhalation Q6H PRN 02/11/23 aerosol inhaler (Ventolin HFA) shortness of breath or wheezing #6.7 grams methylprednisolone 4 mg tablets in 4 mg PO DIRECTED #21 tabs 02/11/23 a dose pack Allergies Allergy/AdvReac Type Severity Reaction Status Date / Time No Known Allergies Allergy Verified 12/26/21 08:57 [facility] Disclaimer: The information contained in this section may have been updated after the patient was seen, as this information can be updated by other users. 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 (Updated 02/11/23 @ 13:37 by Ben Carranza APRN) Asthma Hypertension Kidney stone Surgical History (Updated 02/05/23 @ 15:35 by Lu Sotelo R
[2023-02-11 12:35] LABS: UTC Strep Screen (Rapid) Negative (Negative)
--- NOTE | 2023-02-11 13:05 | XR_ITS ---
FINAL REPORT TECHNIQUE: Two views CLINICAL HISTORY: cough, congestion COMPARISON: 01/19/2021 FINDINGS: No acute pulmonary density is present. Mediastinal contour is normal. Heart size is stable. IMPRESSION: Stable chest exam without acute disease Reviewed, Interpreted and Dictated by Hailey Michel MD Transcribed by Kristine Ferreira Authenticated and . [facility] [place]
[2023-02-11 13:41] VITALS: BP 142/70; PULSE 92; RESP 20; TEMP 36.6; O2SAT 97
== END 2023-02-11 13:41 | disposition home or self-care (01) ==
PROVIDERS: Emergency Provider Nurse Practitioner Family; PCP Pediatrics
DX: J20.9 Acute bronchitis, unspecified (principal); J02.9 Acute pharyngitis, unspecified; I10 Essential (primary) hypertension; J45.909 Unspecified asthma, uncomplicated
CPT/HCPCS: 71046; 87880; 99212; 99214; G0463

== ENCOUNTER 2023-02-17 11:49 | Emergency (ER) | payer OTHER, SELFPAY ==
[2023-02-17 11:50] VITALS: BP 140/87; PULSE 98; RESP 18; TEMP 37.3; O2SAT 96; BMI 52.6
--- NOTE | 2023-02-17 12:07 | EXP.UTC ---
Discharge Plan Disposition Patient Disposition: Home, Self-Care Condition: Good Prescriptions Prescriptions: New methylprednisolone 4 mg Tablets,Dose Pack 4 mg PO DIRECTED Qty: 21 0RF No Action oxycodone-acetaminophen 1 EACH tablet 1 tab PO Q6HP PRN (Reason: Moderate To Severe Pain) Qty: 12 0RF ondansetron 4 MG tablet,disintegrating 4 mg PO TIDP PRN (Reason: Nausea And Vomiting) Qty: 10 0RF benzonatate [benzonatate] 100 mg capsule 100 mg PO TIDP PRN (Reason: Cough) Qty: 30 0RF amoxicillin-pot clavulanate 875-125 mg Tablet 1 tab PO Q12H Qty: 20 0RF promethazine-DM 6.25-15 mg/5 mL Syrup 5 ml PO Q6H PRN (Reason: Cough) Qty: 240 0RF methylprednisolone 4 mg Tablets,Dose Pack 4 mg PO DIRECTED Qty: 21 0RF albuterol sulfate [Proventil HFA] 90 mcg/actuation HFA aerosol inhaler 1 - 2 inh inhalation Q4-6H PRN (Reason: shortness of breath or wheezing) Qty: 8.5 0RF guaifenesin [Mucinex] 600 mg tablet extended release 12hr 1,200 mg PO BID PRN (Reason: congestion) Qty: 20 0RF azithromycin [Zithromax Z-Rahul] 250 mg tablet See Rx Instructions .ROUTE .COMPLEX 5 Days Qty: 6 0RF Rx Instructions: For 250 mg dose pack: take 500 mg today (day 1), then 250 mg for 4 days (days 2-5) methylprednisolone 4 mg Tablets,Dose Pack 4 mg PO DIRECTED Qty: 21 0RF albuterol sulfate [Ventolin HFA] 90 mcg/actuation HFA aerosol inhaler 2 puff inhalation Q6H PRN (Reason: shortness of breath or wheezing) Qty: 6.7 0RF Referrals Follow up/Referrals: Dillon Courtney [Primary Care Provider] - See instructions Activity Restrictions/Add. Instructions Additional Instructions/Restrictions: Drink plenty of fluids. Take tylenol for pain or fever. Take the medications as directed. Follow up with your regular doctor. GO TO THE ER FOR ANY WORSENING SYMPTOMS Clinical Impressions Clinical Impression: Viral syndrome Instructions Patient Instructions: DI for Viral Syndrome Discharge ED Provider: Ben Carranza [facility] [place] HPI General Stated complaint: sore throat,swollen,cough,ear pain Time Seen by Provider: 02/17/23 12:07 History of Present Illness Provider Complaint: He states that for the past 2 days he has had sore throat, chills, body aches, and fatigue. Related Data Previous Rx's Medication Instructions Recorded ondansetron 4 mg disintegrating 4 mg PO TIDP PRN Nausea And 12/01/21 tablet Vomiting #10 tabs oxycodone-acetaminophen 5 mg-325 1 tab PO Q6HP PRN Moderate To 12/01/21 mg tablet Severe Pain #12 tabs amoxicillin 875 mg-potassium 1 tab PO Q12H #20 tabs 02/03/23 clavulanate 125 mg tablet benzonatate 100 mg capsule 100 mg PO TIDP PRN Cough #30 caps 02/03/23 methylprednisolone 4 mg tablets in 4 mg PO DIRECTED #21 tabs 02/03/23 a dose pack promethazine-DM 6.25 mg-15 mg/5 mL 5 ml PO Q6H PRN Cough #240 mL 02/03/23 oral syrup albuterol sulfate 90 mcg/actuation 1 - 2 inh inhalation Q4-6H PRN 02/05/23 aerosol inhaler (Proventil HFA) shortness of breath or wheezing #8.5 grams azithromycin 250 mg tablet See Rx Instructions PO .COMPLEX 5 02/05/23 (Zithromax Z-Rahul) days #6 tabs guaifenesin 600 mg tablet, 1,200 mg PO BID PRN congestion #20 02/05/23 extended release 12 hr (Mucinex) tabs albuterol sulfate 90 mcg/actuation 2 puff inhalation Q6H PRN 02/11/23 aerosol inhaler (Ventolin HFA) shortness of breath or wheezing #6.7 grams methylprednisolone 4 mg tablets in 4 mg PO DIRECTED #21 tabs 02/11/23 a dose pack methylprednisolone 4 mg tablets in 4 mg PO DIRECTED #21 tabs 02/17/23 a dose pack Allergies Allergy/AdvReac Type Severity Reaction Status Date / Time No Known Allergies Allergy Verified 12/26/21 08:57 [facility] Disclaimer: The information contained in this section may have been updated after the patient was seen, as this information can be updated by other users. 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 As
[2023-02-17 12:27] LABS: UTC Strep Screen (Rapid) Negative (Negative)
[2023-02-17 13:20] VITALS: BP 140/87; PULSE 98; RESP 18; TEMP 37.3; O2SAT 96
== END 2023-02-17 13:21 | disposition home or self-care (01) ==
PROVIDERS: Emergency Provider Nurse Practitioner Family; PCP Pediatrics
DX: B34.9 Viral infection, unspecified (principal); R07.0 Pain in throat; R53.83 Other fatigue; J45.909 Unspecified asthma, uncomplicated; I10 Essential (primary) hypertension
CPT/HCPCS: 87880; 99212; 99214; G0463

== ENCOUNTER 2023-12-12 17:01 | Emergency (ER) | payer SELFPAY ==
[2023-12-12 17:25] VITALS: BP 150/102; PULSE 84; RESP 20; TEMP 36.9; O2SAT 96; BMI 52.4
--- NOTE | 2023-12-12 17:32 | EXP.UTC ---
Discharge Plan Disposition Patient Disposition: Home, Self-Care Condition: Good Prescriptions Prescriptions: New clotrimazole 1 % cream 1 applic topical BID 10 Days Qty: 15 0RF fluconazole 150 mg tablet 150 mg PO ONCE Qty: 1 0RF Referrals Follow up/Referrals: Manjinder Courtney [Primary Care Provider] - See instructions Activity Restrictions/Add. Instructions Additional Instructions/Restrictions: Take tylenol or ibuprofen for pain. Take the medications as directed. Apply the topical medication as directed. Follow up with your regular doctor. GO TO THE ER FOR ANY WORSENING SYMPTOMS We took a culture of the affected area. This will tell a more specific cause of this issue. It will take 3 days to complete. Clinical Impressions Clinical Impression: Balanitis Instructions Patient Instructions: Fluconazole, DI for Balanitis, Clotrimazole Topical Discharge ED Provider: Ben Carranza [facility] General Stated complaint: Rash on privates Time Seen by Provider: 12/12/23 17:32 History of Present Illness Provider Complaint: He states that for the past week he has had irritation and several wounds on the bottom of his penis. He has a history of phimosis since he was a child. He states that after he has sex he frequently has these symptoms. Related Data Previous Rx's Medication Instructions Recorded clotrimazole 1 % topical cream 1 applic topical BID 10 days #15 12/12/23 grams fluconazole 150 mg tablet 150 mg PO ONCE 1 dose #1 tab 12/12/23 Allergies Allergy/AdvReac Type Severity Reaction Status Date / Time No Known Allergies Allergy Verified 12/26/21 08:57 [facility] Disclaimer: The information contained in this section may have been updated after the patient was seen, as this information can be updated by other users. 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 Asthma Hypertension Kidney stone Surgical History History of tonsillectomy Social History Smoking Status: Never smoker alcohol intake: never substance use type: denies use current occupational status: employed Travel in the last 8 weeks: None household members: spouse and family housing: house ROS Obtained: Yes All systems reviewed & no additional complaints except as documented Constitutional Constitutional: Denies chills and Denies fever(s) Eyes Eyes: Denies eye discharge ENT Ears, Nose, Mouth, and Throat: Denies dizziness, Denies otalgia and Denies sore throat Cardiovascular Cardiovascular: Denies chest pain Respiratory Respiratory: Denies shortness of breath, Denies chest congestion, Denies cough, Denies stridor and Denies wheezing Gastrointestinal Gastrointestingal: Denies nausea or vomiting Genitourinary Male Genitourinary: Reports as per HPI, Denies difficulty urinating and Reports penile ulceration Musculoskeletal Musculoskeletal: Reports system reviewed and no additional complaints, except as documented and Denies arthralgias Integumentary/Breasts Skin/Breast: Denies rash Neurologic Neurologic: Denies dizziness and Denies paresthesias Allergic/Immunologic Allergic/Immunologic: Denies wheezing Physical Exam General General appearance: alert and in no apparent distress Head Head exam: atraumatic, normocephalic and normal inspection Eye Eye exam: Present normal appearance, PERRL and EOMI ENT ENT exam: Present normal exam, normal oropharynx, mucous membranes moist, TM's normal bilaterally and normal external ear exam Neck Neck exam: Present normal inspection, full ROM and trachea midline; Absent meningismus or lymphadenopathy Chest Chest inspection: Present normal inspection and symmetric chest wall rise; Absent tenderness Respiratory Respiratory exam: Present normal lung sounds bilaterally; Absent respiratory distress Cardiovascular Cardiovascular exam: Present regular rate and normal rhythm; Absent JVD Abdominal Exam Abdominal exam: Present soft and normal bowel sounds; Absent distention, tenderness or guarding exam: Present circumcised; Absent scrotal swelling Expanded Exam exam: Present lesions, erythema and balanitis; Absent induration or perineal induration Extremities Exam Extremities exam: Present normal inspection, full ROM and normal capillary refill; Absent calf tenderness Back Exam Back exam: Present normal inspection; Absent tenderness Neurological Exam Neurological exam: Present alert and oriented X3 Psychiatric Psychiatric exam: Present normal affect and normal mood Skin Skin exam: Present warm, dry, intact and normal color Lymphatic Lymphatic Findings: no adenopathy Medical Decision Making Medical Records Medical records reviewed: No I reviewed the patient's medical records. Johnnie Inquiry Pt receiving controlled substance: No
[2023-12-12 18:25] VITALS: BP 150/102; PULSE 84; RESP 20; TEMP 36.9; O2SAT 96
== END 2023-12-12 18:27 | disposition home or self-care (01) ==
PROVIDERS: Emergency Provider Nurse Practitioner Family; PCP Internal Medicine
DX: N48.1 Balanitis; B95.62 Methicillin resistant Staphylococcus aureus infection as the cause of diseases classified elsewhere
CPT/HCPCS: 87070; 87077; 87186; 87205; 99212; 99214; G0463

== ENCOUNTER 2024-06-08 10:36 | Emergency (ER) | payer SELFPAY ==
[2024-06-08 11:26] VITALS: BP 131/73; PULSE 78; RESP 18; TEMP 36.8; O2SAT 98; BMI 51.7
--- NOTE | 2024-06-08 11:40 | ED_ITS ---
Discharge Plan Disposition Patient Disposition: Home, Self-Care Condition: Good Prescriptions Prescriptions: New clotrimazole 1 % cream 1 applic topical BID Qty: 15 0RF Rx Instructions: apply to area as directed Referrals Follow up/Referrals: Dillon Courtney [Primary Care Provider] - See instructions Activity Restrictions/Add. Instructions Additional Instructions/Restrictions: Sitz baths BID-TID while inflammation persistsHygiene Clean between foreskin and glans with Q-tip and irrigate with water until resolves Once resolved regular bathing of area in water (no soap) should be sufficient Use topical cream as prescribed Follow up with your Family Doctor if symptoms persist Clinical Impressions Clinical Impression: Balanitis Instructions Patient Instructions: DI for Balanitis, Balanitis Print Language Print Language: Irish Discharge ED Provider: Julia Reyes [facility] [place] General Stated complaint: Allergic reaction- rash and swelling in sens area Mode of Arrival: Ambulatory Source of Information: Patient Time Seen by Provider: 06/08/24 11:40 Description of Symptoms (Recalled from Triage Doc. by RN): USED NEW LUBE AND NOW HAS A RASH ON GENITIAL AREA HEENT Symptoms (Recalled from RN notes): No Resp Symptoms (Recalled from RN notes): No Skin Symptoms (Recalled from RN notes): Yes MS Symptoms (Recalled from RN notes): No Functional Status (Recalled from RN notes): WNL History of Present Illness Provider Complaint: Patient states that he used a new lubrication during sex with his and he has some redness and irritation to the tip of his penis area States he has done this before after trying lubrication and was prescribed a ointment for it and it did help but he misplaced the tube so he came in to get some more of it to help States that it is red and irritated Related Data Previous Rx's ?Medication ?Instructions ?Recorded clotrimazole 1 % topical cream 1 applic topical BID #15 grams 06/08/24 Allergies Allergy/AdvReac Type Severity Reaction Status Date / Time No Known Allergies Allergy Verified 12/26/21 08:57 Worker's Comp Is this a Worker's Comp case?: No [facility] Disclaimer: The information contained in this section may have been updated after the patient was seen, as this information can be updated by other users. 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 Asthma Hypertension Kidney stone Surgical History History of tonsillectomy Social History Smoking Status: Never smoker alcohol intake: never substance use type: denies use current occupational status: employed Travel in the last 8 weeks: None household members: spouse and family housing: house ROS Obtained: Yes All systems reviewed & no additional complaints except as documented and Yes Systems reviewed as appropriate & no additional complaints except as documented Constitutional Constitutional: Reports system reviewed and no additional complaints, except as documented and Reports as per HPI Eyes Eyes: Reports system reviewed and no additional complaints, except as documented and Reports as per HPI ENT Ears, Nose, Mouth, and Throat: Reports system reviewed and no additional complaints, except as documented and Reports as per HPI Cardiovascular Cardiovascular: Reports system reviewed and no additional complaints, except as documented and Reports as per HPI Respiratory Respiratory: Reports system reviewed and no additional complaints, except as documented and Reports as per HPI Gastrointestinal Gastrointestingal: Reports system reviewed and no additional complaints, except as documented and as per HPI Genitourinary Male Genitourinary: Reports system reviewed and no additional complaints, except as documented, Reports as per HPI and Reports other (redness and irritation around head of penis) Physical Exam General General appearance: alert and in no apparent distress ENT ENT exam: Present normal exam, normal oropharynx, mucous membranes moist and TM's normal bilaterally Respiratory Respiratory exam: Present normal lung sounds bilaterally; Absent respiratory distress or wheezes Cardiovascular Cardiovascular exam: Present regular rate, normal rhythm and normal heart sounds Abdominal Exam Abdominal exam: Present soft and normal bowel sounds; Absent distention or tenderness exam: Present other (redness and irritation noted appears like balanitis ); Absent testicular tenderness or scrotal swelling Neurological Exam Neurological exam: Present alert, oriented X3 and normal gait Medical Decision Making Medical Records Screening: Per USPSTF and CDC recommendations, given the prevalence of disease in our region, it is our hospital?s policy to screen for HIV and viral Hepatitis for all patients aged 18 and over and those with ongoing risk factors. Johnnie Inquiry Pt receiving controlled substance: No Johnnie was queried for this patient: No Vital Signs: 06/08/24 11:26 Temperature 98.2 F Temperature Source Oral Pulse Rate [Left Radial] 78 Respiratory Rate 18 Blood Pressure [Left Arm] 131/73 Blood Pressure Mean [Left Arm] 92 02 Sat by Pulse Oximetry 98
[2024-06-08 12:13] VITALS: BP 131/73; PULSE 78; RESP 18; TEMP 36.8
== END 2024-06-08 12:14 | disposition home or self-care (01) ==
PROVIDERS: Emergency Provider Nurse Practitioner; PCP Pediatrics
DX: N48.1 Balanitis (principal)
CPT/HCPCS: 99213; G0381

== ENCOUNTER 2024-06-13 12:10 | Emergency (ER) | payer SELFPAY ==
[2024-06-13 12:25] VITALS: BP 141/90; PULSE 85; RESP 19; TEMP 36.8; O2SAT 98; BMI 39.2
--- NOTE | 2024-06-13 13:02 | EXP.UTC ---
Discharge Plan Prescriptions Prescriptions: New prednisone 20 mg tablet 20 mg PO BID Qty: 10 0RF No Action clotrimazole 1 % cream 1 applic topical BID Qty: 15 0RF Rx Instructions: apply to area as directed Referrals Follow up/Referrals: Dillon Courtney [Primary Care Provider] - See instructions Activity Restrictions/Add. Instructions Additional Instructions/Restrictions: Call PCP on Saturday see for sooner appointment Urology call for an appointment Steroids as ordered If symptoms worsen or do not improve return Clinical Impressions Clinical Impression: Allergic reaction Instructions Patient Instructions: DI for General Allergic Reactions Print Language Print Language: Arabic Discharge ED Provider: Meredith ([facility] [place] [place] General Stated complaint: rash with swelling Mode of Arrival: Ambulatory Source of Information: Patient Limitations: No Limitations Time Seen by Provider: 06/13/24 13:01 Description of Symptoms (Recalled from Triage Doc. by RN): PATIENT STATES HE WAS SEEN IN [facility] [place] ON SATURDAY FOR A RASH AND SWELLING TO GENITAL AREA FROM A REACTION TO LUBRICATION. PATIENT REPORTS GENITAL IS STILL SWOLLEN AND HE CANNOT FOLLOW UP WITH PCP FOR 2 WEEKS HEENT Symptoms (Recalled from RN notes): No Resp Symptoms (Recalled from RN notes): No Skin Symptoms (Recalled from RN notes): No MS Symptoms (Recalled from RN notes): No Functional Status (Recalled from RN notes): WNL History of Present Illness Provider Complaint: 29-year-old male presents for complaints of a rash and swelling to penis. Patient states he was seen on Saturday. Patient states him and his used a new lubrication and he had an allergic reaction to it causing his penis to swell and he cannot get into his primary care doctor for 2 weeks. Patient states he has no difficulty urinating. Related Data Previous Rx's ?Medication ?Instructions ?Recorded clotrimazole 1 % topical cream 1 applic topical BID #15 grams 06/08/24 prednisone 20 mg tablet 20 mg PO BID #10 tabs 06/13/24 Allergies Allergy/AdvReac Type Severity Reaction Status Date / Time No Known Allergies Allergy Verified 12/26/21 08:57 Worker's Comp Is this a Worker's Comp case?: No [facility] Disclaimer: The information contained in this section may have been updated after the patient was seen, as this information can be updated by other users. 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) Smoking Status: Never smoker alcohol intake: never substance use type: denies use current occupational status: employed household members: spouse and family housing: house ROS Obtained: Yes Systems reviewed as appropriate & no additional complaints except as documented Genitourinary Male Genitourinary: Reports system reviewed and no additional complaints, except as documented, Reports as per HPI and Reports other Integumentary/Breasts Skin/Breast: Reports system reviewed and no additional complaints, except as documented, Reports as per HPI and Reports rash Physical Exam General General appearance: alert and in no apparent distress Head Head exam: atraumatic Eye Eye exam: Present normal appearance Respiratory Respiratory exam: Present normal lung sounds bilaterally Cardiovascular Cardiovascular exam: Present regular rate and normal rhythm exam: Present other (Slight penile swelling and redness) Neurological Exam Neurological exam: Present alert and oriented X3 Medical Decision Making Medical Records Medical records reviewed: Yes I reviewed the patient's medical records. Screening: Per USPSTF and CDC recommendations, given the prevalence of disease in our region, it is our hospital?s policy to screen for HIV and viral Hepatitis for all patients aged 18 and over and those with ongoing risk factors. Johnnie Inquiry Pt receiving controlled substance: No Johnnie was queried for this patient: No Vital Signs: 06/13/24 12:25 Temperature 98.3 F Temperature Source Oral Pulse Rate [Left Brachial] 85 Respiratory Rate 19 Blood Pressure [Left Arm] 141/90 H Blood Pressure Mean [Left Arm] 107 Blood Pressure Source [Left Arm] Automatic Cuff Blood Pressure Position [Left Arm] Sitting 02 Sat by Pulse Oximetry 98 Oxygen Delivery Method Room Air
[2024-06-13 13:25] VITALS: BP 141/90; PULSE 85; RESP 19; TEMP 36.8; O2SAT 98
== END 2024-06-13 13:27 | disposition home or self-care (01) ==
PROVIDERS: Emergency Provider Nurse Practitioner Family; PCP Pediatrics
DX: T78.40XA Allergy, unspecified, initial encounter (principal)
CPT/HCPCS: 99213; G0381

== ENCOUNTER 2024-06-22 16:19 | Outpatient (CLI) | payer SELFPAY | END 2024-06-22 23:59 | disposition home or self-care (01) | LOC: LAB.DROPOF 16:19 | PROVIDERS: PCP Urology; Visit Provider Urology | DX: N20.1 Calculus of ureter (principal) | CPT/HCPCS: 87070; 87205 ==

== ENCOUNTER 2024-11-10 19:10 | Emergency (ER) | payer SELFPAY ==
[2024-11-10 19:23] VITALS: BP 145/101; PULSE 98; O2SAT 97
--- NOTE | 2024-11-10 19:27 | ED_ITS ---
<Statement entered by Eladio Smith MD - 11/10/24 22:05> I was consulted by the NAHOMI, and we discussed the complexity of the problems being addressed. I approved the treatment and management plan for this patient's care in the emergency department, thus performing a substantive portion of the medical decision making. Eladio Smith MD Discharge Plan Disposition Patient Disposition: Home, Self-Care Condition: Good Prescriptions Prescriptions: New amoxicillin-pot clavulanate 875-125 mg tablet 1 tab PO BID Qty: 14 0RF metronidazole 500 mg tablet 500 mg PO BID 7 Days Qty: 14 0RF No Action nystatin-triamcinolone 100,000-0.1 unit/g-% cream 1 applic topical BID 30 Days Qty: 30 0RF Referrals Follow up/Referrals: Zay Nguyen MD [Referring] - See instructions Dillon Courtney MD [Primary Care Provider] - See instructions Activity Restrictions/Add. Instructions Additional Instructions/Restrictions: We have referred you to wound care. Please call the number provided to schedule your appointment. Additionally we have referred you to urology for ongoing management and care. Please contact them tomorrow to schedule appointment. I have sent prescriptions into your pharmacy. Please take until are gone. You need to try to keep your penis and foreskin as dry as possible. If you have continued new or worsening signs or symptoms follow-up with your PCP return to the ER as needed. Clinical Impressions Clinical Impression: Balanoposthitis, Hyperglycemia Print Language Print Language: [place] Discharge ED Provider: Eladio Smith General Adult HPI General Chief complaint: PAIN Stated complaint: reaction to cream for his penis,swollen Time Seen by Provider: 11/10/24 19:27 History of Present Illness HPI narrative: Patient presents for evaluation of penile pain. 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 Patient states that throughout his life when he gets an erection he suffered a skin tear at the frenulum. In the past he has gotten balanitis and been prescribed a antifungal cream. He states that approximately 1 week ago he had recurrence of this event with a skin tear at the frenulum of the penis and put on the cream that he had. He states next morning he began having swelling of the remainder of the foreskin and the glans of the penis. That is progressed over the last week to the point that he can no longer deliver his penis from his pannus. He reports right testicular pain that radiates down his leg. He denies fever chills chest pain shortness of breath hemoptysis hematochezia melena nausea vomiting diarrhea. He is still able to urinate however. Related Data Previous Rx's ?Medication ?Instructions ?Recorded nystatin-triamcinolone 100,000 1 applic topical BID 30 days #30 07/06/24 unit/g-0.1 % topical cream grams amoxicillin 875 mg-potassium 1 tab PO BID #14 tabs 11/10/24 clavulanate 125 mg tablet metronidazole 500 mg tablet 500 mg PO BID 7 days #14 tabs 11/10/24 Allergies Allergy/AdvReac Type Severity Reaction Status Date / Time No Known Allergies Allergy Verified 07/06/24 10:55 [facility] Disclaimer: The information contained in this section may have been updated after the patient was seen, as this information can be updated by other users. 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 Kidney stone Asthma Hypertension Surgical History History of tonsillectomy Social History Smoking Status: Never smoker alcohol intake: never substance use type: denies use current occupational status: employed Travel in the last 8 weeks: None household members: spouse and family housing: house Have you lived/traveled outside US in past 30 days?: No Contact w/someone who lives/traveled outside US past 30 days?: No Exposure to someone with infectious disease in past 14 days?: No Do you have a fever (greater than 100.4 F or 38 C)?: No Have you tested positive for COVID-19: No Exposed to someone with COVID-19 in past 14 days?: No Do you have a sore throat?: No Do you have a cough?: No Do you have any weakness?: No Do you have any diarrhea?: No Are you experiencing any unusual bleeding?: No Do you have any muscle aches/pain?: No Do you have any abdominal pain?: No Are you experiencing loss of taste or smell?: No Other 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 Have you received the Flu Vaccine for this season: No Have you received the Pneumonia Vaccine: No ROS Obtained: Yes Systems reviewed as appropriate & no additional complaints except as documented Physical Exam General General appearance: alert Respiratory Respiratory exam: Present normal lung sounds bilaterally Cardiovascular Cardiovascular exam: Present regular rate Neurological Exam Neurological exam: Present alert and oriented X3 Medical Decision Making Medical Records Medical records reviewed: Yes I reviewed the patient's medical records. Screening: Per USPSTF and CDC recommendations, given the prevalence of disease in our region, it is our hospital?s policy to screen for HIV and viral Hepatitis for all patients aged 18 and over and those with ongoing risk factors. Johnnie Inquiry Pt receiving controlled substance: No Vital Signs: 11/10/24 19:23 11/10/24 19:32 11/10/24 19:49 Temperature 98.8 F Temperature Source Oral Pulse Rate 98 H 91 H Pulse Rate [Right Brachial] 91 H Respiratory Rate 20 Blood Pressure 145/101 H 160/97 H Blood Pressure [Right Arm] 160/97 H Blood Pressure Mean [Right Arm] 118 Blood Pressure Source Blood Pressure Source [Right Arm] Automatic Cuff Blood Pressure Position Blood Pressure Position [Right Arm] Supine 02 Sat by Pulse Oximetry 97 98 97 Oxygen Delivery Method Room Air 11/10/24 20:01 11/10/24 21:47 Temperature 98.2 F Temperature Source Oral Pulse Rate 88 74 Pulse Rate [Right Brachial] Respiratory Rate 20 Blood Pressure 154/109 H 145/94 H Blood Pressure [Right Arm] Blood Pressure Mean [Right Arm] Blood Pressure Source Automatic Cuff Blood Pressure Source [Right Arm] Blood Pressure Position Supine Blood Pressure Position [Right Arm] 02 Sat by Pulse Oximetry 97 Oxygen Delivery Method Room Air Lab Data Lab results reviewed: Yes I reviewed the patient's lab results. Lab Results 11/10/24 19:44: WBC 7.4, RBC 5.45, Hgb 15.3, Hct 44.8, MCV 82.2, MCH 28.1, MCHC 34.2, RDW 12.9, Plt Count 224, MPV 11.5 H, Neut % (Auto) 63.8, Lymph % (Auto) 23.7, Mcdonough % (Auto) 7.4, Eos % (Auto) 3.5, Baso % (Auto) 0.7, Neut # (Auto) 4.7, Lymph # (Auto) 1.8, Mcdonough # (Auto) 0.6, Eos # (Auto) 0.3, Baso # (Auto) 0.1, ESR 16 H, Sodium 141, Potassium 3.8, Chloride 109 H, Carbon Dioxide 20 L, Anion Gap 15.8 H, BUN 10, Creatinine 0.70, Estimated Creat Clear 171, Estimated GFR 133, Est GFR ( Amer) 161, Glucose 197 H, Lactate 4.1 H, Calcium 9.4, Total Bilirubin 0.9, AST 54, ALT 80 H, Alkaline Phosphatase 74, C-Reactive Protein 9.3 H, Total Protein 6.8, Albumin 4.4, Globulin 2.4, Albumin/Globulin Ratio 1.8, Procalcitonin 0.113 11/10/24 21:25: VBG pH 7.37, VBG pCO2 38.5, VBG pO2 60.1 H, VBG HCO3 21.7 L, VBG Total CO2 22.8 L, VBG O2 Saturation 91.5 H, VBG Base Excess -3.7 L, VBG Lactic Acid 2.0 11/10/24 19:44 11/10/24 19:44 Orders (Tests/Meds): ED MEDICATIONS Discontinued Medications Generic Name Dose Route Start Last Admin Trade Name Freq PRN Reason Stop Dose Admin Acetaminophen 1,000 mg 11/10/24 19:36 11/10/24 19:55 Acetaminophen 1,000mg/100ml Vial IV 11/10/24 19:37 1,000 mg ONCE ONE Administration Amoxicillin/Clavulanate Potassium 1 each 11/10/24 20:03 11/10/24 20:16 Amoxicillin/Clavulanate Potassium 875/125mg Tablet PO 11/10/24 20:04 1 each ONCE ONE Administration Hydromorphone HCl 1 mg 11/10/24 19:36 11/10/24 19:56 Hydromorphone 2mg/Ml Syringe IV 11/10/24 19:37 1 mg ONCE ONE Administration Sodium Chloride 1,000 mls @ 999 mls/hr 11/10/24 19:36 11/10/24 19:56 Sod Chlor 0.9% 1000ml Bag IV 11/10/24 20:36 999 mls/hr .Q1H1M ONE Administration Fluconazole 400 mg in 200 mls @ 400 mls/hr 11/10/24 19:41 11/10/24 19:55 Diflucan 400mg/200ml Premix Ivpb IV 11/10/24 20:10 400 mls/hr ONCE ONE Administration Metronidazole 500 mg in 100 mls @ 100 mls/hr 11/10/24 19:36 11/10/24 19:56 Flagyl 500mg/100ml Ivpb IV 11/10/24 20:35 100 mls/hr ONCE ONE Administration Iopamidol 75 ml 11/10/24 19:54 11/10/24 19:55 Iopamidol-370 (76%);100ml Bottle IV 11/10/24 19:55 75 ml ONCE ONE Administration Ketorolac Tromethamine 15 mg 11/10/24 19:36 11/10/24 19:56 Ketorolac 30mg/Ml Vial IV 11/10/24 19:37 15 mg ONCE ONE Administration Sodium Chloride 10 ml 11/10/24 19:54 11/10/24 19:55 Sodium Chloride 0.9% 10ml Syr (Rad Only) IV 11/10/24 19:55 10 ml ONCE ONE Administration ORDERS Category Date Time Status CT abdomen pelvis w con Stat Cat Scan 11/10/24 19:36 Completed CBC w/Auto Diff [Complete Blood Count Auto Diff] Stat Lab 11/10/24 19:44 Completed CMP [Comprehensive Metabolic Panel] Stat Lab 11/10/24 19:44 Completed CRP [C-Reactive Protein] Stat Lab 11/10/24 19:44 Completed ESR [Erythrocyte Sedimentation Rate] Stat Lab 11/10/24 19:44 Completed HIV Combo Routine Lab 11/10/24 19:44 Received Hepatitis C Ab Qual. W/ RFX Routine Lab 11/10/24 19:44 Received Lactic Acid Stat Lab 11/10/24 19:44 Completed Procalcitonin Stat Lab 11/10/24 19:44 Completed UA [Urinalysis and Microscopic] Stat Lab 11/10/24 21:20 Received Urine Chlam/Gono/Trich, DASH Routine Lab 11/10/24 21:20 Received Venous Blood Gas Routine RT 11/10/24 21:25 Completed US scrotum [US Testicular] Stat Ultrasound 11/10/24 19:43 Completed Tissue Perfus/Sepsis Re-Eval Sepsis Re-Evaluation Performed: Yes Date Performed: 11/10/24 Time Performed: 21:57 Medical Decision Narrative: In summary patient is a 29-year-old male who presents to the emergency department for evaluation of penis pain and swelling. Patient is initially hypertensive with a blood pressure 145/101 heart rate of 98 with normal sinus rhythm on the bedside monitor breathing 20 times a minute satting at 97% on room air upon arrival, afebrile at 98.8. Physical exam reveals significant glans penis and swelling along with the superior portion of his remainder of his foreskin edema as well. We were able to deliver his penis from deep inside his pannus and it showed wet maceration/ulceration around the glans of the penis and the foreskin. The skin was wet but no purulent debris noted. There was no induration around the pannus no cellulitis noted. Scrotal time tense were normal scrotum soft the right testicle was tender but again no cellulitis noted.. Differential diagnosis includes balanoposthitis versus deep space infection versus abscess versus testicular torsion etc. Initial workup will be conducted with hematologic labs CT scan abdomen pelvis urinalysis scrotal ultrasound blood cultures. Initial interventions include crystalloid bolus Toradol Tylenol Dilaudid fluconazole Flagyl and p.o. Augmentin after blood cultures drawn. Initial workup reviewed by me and his hematologic labs are significant for a normal white count normal H&H with no neutrophilic shift, his ESR was 16, chloride 109 CO2 20 anion gap 15.8 serum glucose 197 consistent with diabetes which she does not carry diagnosis of, initial lactate of 4.1 ALT of 80 CRP of 9.3 a procalcitonin of 0.113 and my informal interpretation of his imaging and ultrasound shows no testicular torsion and no deep space abscess prior to radiology read.. Upon repeat evaluation patient had significant improvement in his constitutional symptoms and his repeat VBG shows a lactic acid of 2.0 after initial intervention and crystalloid bolus.. Given this I had interactive discussion with Dr. Nguyen of urology at [facility] and he recommended systemic antibiotics and follow-up in his office. He also recommended wound care. Given this patient will be referred to wound care here referral to urology for ongoing management and care given a prescription for 7 days of Augmentin and Flagyl and he received a dose of fluconazole here. He is also advised to follow-up with his PCP for his new diagnosis of diabetes for further ongoing management and care. Patient verbalized understanding and agreement. Critical Care Critical Care Time Critical Care Time: Yes Attestation: On 11/10/24, the high probability of a clinically significant, sudden or life threatening deterioration of the following system(s) required my full and direct attention, intervention and personal management. The time I documented below is in addition to time spent performing reported procedures but includes the following listed in this critical care notation. Total Time Total Critical Care Time: 35
[2024-11-10 19:32] VITALS: BP 160/97; PULSE 91; O2SAT 98
--- NOTE | 2024-11-10 19:36 | CT_ITS ---
PROCEDURE INFORMATION: Exam: CT Abdomen And Pelvis With Contrast Exam date and time: 11/10/2024 7:53 PM Age: 29 years old Clinical indication: Other: Penile infection & right testicle pain; Additional info: Penile infection and right testicle pain TECHNIQUE: Imaging protocol: Computed tomography of the abdomen and pelvis with contrast. Radiation optimization: All CT scans at this facility use at least one of these dose optimization techniques: automated exposure control; mA and/or kV adjustment per patient size (includes targeted exams where dose is matched to clinical indication); or iterative reconstruction. Contrast material: ISOVUE; Contrast volume: 75 ml; Contrast route: IV; COMPARISON: CR XR KUB 12/12/2021 2:58 PM FINDINGS: Liver: Normal. No mass. Gallbladder and biliary ducts: Normal. No calcified stones. No ductal dilation. Pancreas: Normal. No ductal dilation. Spleen: Normal. No splenomegaly. Adrenal glands: Normal. No mass. Kidneys and ureters: Normal. No hydronephrosis. Stomach and bowel: Unremarkable. No obstruction. No mucosal thickening. Appendix: No evidence of appendicitis. Intraperitoneal space: Unremarkable. No free air. No significant fluid collection. Vasculature: Unremarkable. No abdominal aortic aneurysm. Lymph nodes: Unremarkable. No enlarged lymph nodes. Urinary bladder: Unremarkable as visualized. Reproductive: Unremarkable as visualized. Bones/joints: Unremarkable. No acute fracture. Soft tissues: Unremarkable. IMPRESSION: No acute findings. No obvious genitourinary abnormality. Scrotal ultrasound recommended for further evaluation.
--- NOTE | 2024-11-10 19:43 | US_ITS ---
PROCEDURE INFORMATION: Exam: US Scrotum Exam date and time: 11/10/2024 8:14 PM Age: 29 years old Clinical indication: Scrotum pain; Additional info: Right testicle pain, penile infection TECHNIQUE: Imaging protocol: Real-time ultrasound of the scrotum and contents with color Doppler and image documentation. COMPARISON: CT ABDOMEN PELVIS W CON 11/10/2024 7:53 PM FINDINGS: Right testicle: Normal. No mass. Normal color Doppler and arterial waveforms. No torsion. Left testicle: Normal. No mass. Normal color Doppler and arterial waveforms. No torsion. Epididymides: Normal. Scrotum/soft tissues: Normal. No hydroceles. IMPRESSION: Normal scrotal ultrasound.
--- NOTE | 2024-11-10 19:47 | PC.NURSE ---
MD examined patient's penis Pt had significant discomfort during procedure. Pt diaphorteic and pale. Speech clear and appropriate Resp full and easy
[2024-11-10 19:49] VITALS: BP 160/97; PULSE 91; RESP 20; TEMP 37.1; O2SAT 97; BMI 53.4
[2024-11-10 19:55] LABS: Basophils # 0.1 K/mm3 (0-0.2); Basophils % 0.7 % (0.1-2.0); Eosinophils # 0.3 Kmm3 (0.0-0.4); Eosinophils % 3.5 % (0.1-12.0); Hematocrit 44.8 % (42.0-52.0); Hemoglobin 15.3 g/dL (14.1-18.0); Lymphocytes # 1.8 K/mm3 (0.7-4.5); Lymphocytes % 23.7 % (10-50); Mean Corpuscular HGB Conc 34.2 g/dL (31.8-35.4); Mean Corpuscular Hemoglobin 28.1 pg (27.0-31.2); Mean Corpuscular Volume 82.2 fl (80-94); Mean Platelet Volume 11.5 fl (7.4-10.4); Monocytes # 0.6 K/mm3 (0.1-1.0); Monocytes % 7.4 % (1.7-9.3); Neutrophils # 4.7 K/mm3 (1.8-7.8); Neutrophils % 63.8 % (37.0-80.0); Nucleated Red Blood Cells # 0 10^3/uL; Nucleated Red Blood Cells % 0 %; Platelet Count 224 K/mm3 (142-424); Red Blood Count 5.45 M/mm3 (4.60-6.20); Red Cell Distribution Width 12.9 % (11.5-17.5); Red Cell Distribution Width-SD 37.8 fL; White Blood Count 7.4 K/mm3 (4.8-10.8)
[2024-11-10] MEDS: FLUCONAZOLE IN NACL,ISO-OSM 400 MG/200 ML BAG IV (19:55)
[2024-11-10] MEDS: SODIUM CHLORIDE 0.9% 10ML SYR (RAD ONLY) 10 ML IV (19:55)
[2024-11-10] MEDS: IOPAMIDOL-370 (76%);100ML BOTTLE 75 ML IV (19:55)
[2024-11-10] MEDS: ACETAMINOPHEN 1,000MG/100ML VIAL 1000 MG IV (19:55)
[2024-11-10] MEDS: 0.9 % SODIUM CHLORIDE 1000ML 1,000 ML 999 ML IV (19:56)
[2024-11-10] MEDS: METRONIDAZ/SOD CHL 500 MG/100 ML PIGGYBACK 100 MG IV (19:56)
[2024-11-10] MEDS: KETOROLAC 30MG/ML VIAL 15 MG IV (19:56)
[2024-11-10] MEDS: HYDROMORPHONE 2MG/ML SYRINGE 1 MG IV (19:56)
[2024-11-10 20:01] VITALS: BP 154/109; PULSE 88; O2SAT 97
[2024-11-10 20:01] LABS: Albumin Level 4.4 g/dl (3.5-5.0); Chloride 109 mmol/L (98-107)
--- NOTE | 2024-11-10 20:01 | PC.NURSE ---
ultrasound notified of need for studt
[2024-11-10 20:02] LABS: Potassium 3.8 mmoL/L (3.5-5.1); Sodium 141 mmol/L (136-145)
[2024-11-10 20:04] LABS: Alanine Aminotransferase 80 U/L (12-78); Anion Gap 15.8 mEq/L (5-15); Aspartate Amino Transferase 54 U/L (17-59); Blood Urea Nitrogen 10 mg/dl (9-20); Carbon Dioxide 20 mmol/L (22.0-30.0); Creatinine Clearance Estimated 171 mL/min (50-200); Estimated Glomerular Filt Rate 133 ml/min (>60); GFR (African American) 161 ML/MIN (>60)
[2024-11-10 20:05] LABS: Albumin/Globulin Ratio 1.8 (1.1-1.8); Alkaline Phosphatase 74 U/L (38-126); Bilirubin,Total 0.9 mg/dl (0.2-1.3); Calcium 9.4 mg/dl (8.4-10.2); Globulin 2.4 g/dL (1.3-3.2); Glucose 197 mg/dl (74-100); Total Protein,Serum 6.8 g/dl (6.3-8.2)
[2024-11-10] MEDS: AMOXICILLIN/CLAVULANATE POTASSIUM 875/125MG TABLET 1 EACH PO (20:16)
[2024-11-10 20:23] LABS: C-Reactive Protein 9.3 mg/L (0-4)
--- NOTE | 2024-11-10 20:33 | PC.NURSE ---
ultrasound being done at bedside
--- NOTE | 2024-11-10 20:35 | PC.NURSE ---
Spoke with [facility], MEDHAT Gupta speaking with the urologist at this time
[2024-11-10 20:37] LABS: Procalcitonin 0.113 ng/mL (0.0-2.0)
[2024-11-10 21:00] LABS: Erythrocyte Sedimentation Rate 16 mm/hr (0-15)
--- NOTE | 2024-11-10 21:05 | PC.NURSE ---
Antibiotics infusing without difficulty Awaiting urine specimane
[2024-11-10 21:11] LABS: Lactic Acid 4.1 mmol/L (0.7-2.1)
[2024-11-10 21:31] LABS: Microscopic, Urine URINE MICROSCOPIC (MICROSCOPIC)
[2024-11-10 21:33] LABS: VBG Base Excess -3.7 mmol/L (-2.4-2.3); VBG HCO3 21.7 mmol/L (23-30); VBG Oxygen Saturation 91.5 % (50-70); VBG PCO2 38.5 mmol/L (35-51); VBG PH 7.37 mmol/L (7.31-7.41); VBG PO2 60.1 mmol/L (28-40); VBG Total CO2 22.8 mmol/L (23-27)
[2024-11-10 21:47] VITALS: BP 145/94; PULSE 74; RESP 20; TEMP 36.8; O2SAT 94
[2024-11-10 22:04] LABS: Hepatitis C Ab Qual. W/ RFX NEGATIVE (Negative)
[2024-11-10 22:37] LABS: Appearance,Urine CLEAR (Clear); Bilirubin,Urine Negative (Negative); Blood, Urine Negative (Negative); Color,Urine YELLOW (Yellow); Glucose,Urine (UA) Negative (Negative); Ketones,Urine Negative (Negative); Leukocyte Esterase,Urine Negative (Negative); Nitrate,Urine Negative (Negative); PH,Urine 5.5 (5.0-8.5); Protein,Urine Negative (Negative)
[2024-11-10 22:56] LABS: RBC,Urine Occasional #/hpf (0-3); Squamous Epithelial Cell,Urine Occasional #/hpf (0-5); WBC,Urine Occasional #/hpf (0-3)
[2024-11-10 22:57] LABS: Bacteria,Urine Trace /lpf
[2024-11-11 02:08] LABS: Chlamydia trachomatis Negative (Negative); Neisseria gonorrhoeae Negative (Negative); Trichomonas vaginalis Negative (Negative)
[2024-11-12 11:06] LABS: HIV Combo NEGATIVE (Negative)
== END 2024-11-10 21:57 | disposition home or self-care (01) ==
PROVIDERS: Physician Assistant; Emergency Provider Emergency Medicine; PCP Pediatrics
DX: N47.6 Balanoposthitis (principal); N48.89 Other specified disorders of penis; R74.02 Elevation of levels of lactic acid dehydrogenase [LDH]; R73.9 Hyperglycemia, unspecified; Z11.59 Encounter for screening for other viral diseases; Z11.4 Encounter for screening for human immunodeficiency virus [HIV]
CPT/HCPCS: 74177; 76870; 80053; 81001; 82803; 83605; 84145; 85025; 85651; 86140; 86803; 87389; 87491; 87591; 87661; 96361; 96365; 96367; 96375; 99291; J0131; J1171; J1450; J1885; J7030; Q9967

== ENCOUNTER 2024-11-24 14:54 | Outpatient (RCR) | payer SELFPAY | END 2024-11-24 23:59 | disposition home or self-care (01) | LOC: PT 14:54 | PROVIDERS: Visit Provider Emergency Medicine | DX: N47.6 Balanoposthitis (principal) ==